=== PATIENT | male | born 1960 | race Hispanic/Latino ===

== ENCOUNTER → 2019-03-11 | Day surgery (SDC) | payer OTHER ==
[~2019-03-11] MED LIST: AMLODIPINE BESY10 MG PO; BENAZEPRIL HCL20 MG PO; FENTANYL CITRATE/PF 100MCG/2 ML INJ ONE; HYOSCYAMINE 0.125 MG TAB ONE; MIDAZOLAM HCL 2 MG/2 ML VIAL ONE; PROPOFOL IV EMULSION 10 MG/ML 50 ML VIAL ONE
--- OUTSIDE RECORDS SUMMARY | 2019-03-11 06:51 | XMS REPORT | CCD ---
Author Author Auto Generated Organization Address Unknown Phone Unavailable Care Team Providers Care Floor Clerk Name Role Phone Jaskaran Estrada RP Allergies, Adverse Reactions, Alerts Substance Reaction Status aspirin Active Medications Medication Instructions Start Date End Date Status Ancef 1 gm, Route: IVPB, ONCE, Start 09/26/2011 09/26/2011 Completed date: 09/26/11 7:35:00, Duration: 1 doses or times, Stop date: 09/26/11 7:35:00 Fish Oil 1000 mg Daily, Substitution Allowed 09/22/2011 Ordered oral capsule multivitamin Daily, Substitution Allowed, 09/22/2011 Ordered Maintenance amlodipine-atorvasta 1 tab, PO, Daily, 90 tab, 09/22/2011 Ordered tin 5 mg-20 mg oral Substitution Allowed, Maintenance, tablet TAB simvastatin 20 mg, 1 tab, PO, Bedtime, 30 tab, 09/22/2011 Ordered Substitution Allowed [place] 5/325 oral 1-2 tab, PO, Q4-6H, PRN, 20 tab, 0, 09/26/2011 10/01/2011 Ordered tablet 0, Pain, Substitution Allowed, Maintenance Reglan 10 mg, Route: IVP, ONCE, Start 09/26/2011 09/26/2011 Completed date: 09/26/11 9:15:00, Stop date: 09/26/11 9:15:00 flumazenil 0.2 mg, 2 mL, Route: IVP, Drug 09/26/2011 09/26/2011 Discontinued form: INJ, PRN, PRN Benzodiazepine Reversal, Initial dose, Start date: 09/26/11 9:23:00, Duration: 30 day, Stop date: 10/26/11 9:22:00 naloxone 0.04 mg, 0.1 mL, Route: IVP, Drug 09/26/2011 09/26/2011 Discontinued form: INJ, Q2MIN, PRN Narcotic Reversal, Start date: 09/26/11 9:23:00, Duration: 8 doses or times, Stop date: Limited # of times ondansetron 4 mg, 2 mL, Route: IVP, Drug form: 09/26/2011 09/26/2011 Discontinued INJ, ONCE, PRN Nausea & Vomiting, Start date: 09/26/11 9:23:00 hydromorphone 0.5 mg, 0.5 mL, Route: IVP, Drug 09/26/2011 09/26/2011 Discontinued form: SOLN, Q5Min, PRN Pain Score 4-6, Start date: 09/26/11 9:23:00, Duration: 5 doses or times, Stop date: Limited # of times fentanyl 25 microgram, 0.5 mL, Route: IVP, 09/26/2011 09/26/2011 Discontinued Drug form: INJ, Q5Min, PRN Pain Score 4-6, Start date: 09/26/11 9:23:00, Duration: 4 doses or times, Stop date: Limited # of times ketorolac 30 mg, 1 mL, Route: IVP, Drug form: 09/26/2011 09/26/2011 Discontinued INJ, ONCE, PRN Breakthrough Pain, Start date: 09/26/11 9:23:00, Duration: 1 doses or times, Stop date: Limited # of times acetaminophen-hydroc 2 tab, Route: PO, Drug Form: TAB, 09/26/2011 09/26/2011 Discontinued odone 325 mg-5 mg Q4H, PRN Pain Score 4-6, Start oral tablet date: 09/26/11 9:23:00, Duration: 30 day, Stop date: 10/26/11 9:22:00 acetaminophen-hydroc 1 tab, Route: PO, Drug Form: TAB, 09/26/2011 09/26/2011 Discontinued odone 325 mg-5 mg Q4H, PRN Pain Score 1-3, Start oral tablet date: 09/26/11 9:23:00, Duration: 30 day, Stop date: 10/26/11 9:22:00 lidocaine 1% 0.5 mL, Route: SUB-Q, Drug Form: 09/26/2011 09/26/2011 Discontinued INJ, ONCALL, Start date: 09/26/11 8:00:00, Duration: 1 doses or times Lactated Ringers 1,000 mL, Rate: 25 ml/hr, Infuse 09/26/2011 09/26/2011 Discontinued Injection IV 1,000 over: 40 hr, Route: IV, Dosing mL Weight 70.455 kg, Total Volume: 1,000, Start date: 09/26/11 7:24:00, Duration: 30 day, Stop date: 10/26/11 7:23:00 Vital Signs Most recent to oldest [Reference Range]: 1 2 3 Height 172.72 cm (09/22/2011 15:27:00) Temperature Oral [96.4-99.1 DegF] 98.3 DegF (09/26/2011 06:28:00) 98.6 DegF (09/22/2011 15:38:00) Systolic Blood Pressure [90-140 mmHg] 130 mmHg (09/26/2011 10:15:00) 126 mmHg (09/26/2011 09:45:00) 111 mmHg (09/26/2011 09:30:00) Diastolic Blood Pressure [60-90 mmHg] 56 mmHg *LOW* (09/26/2011 10:15:00) 59 mmHg *LOW* (09/26/2011 09:45:00) 55 mmHg *LOW* (09/26/2011 09:30:00) Respiratory Rate [14-20 BRMIN] 16 BRMIN (09/26/2011 10:15:00) 16 BRMIN (09/26/2011 09:45:00) 18 BRMIN (09/26/2011 09:30:00) Peripheral Pulse Rate [60-100 bpm] 84 bpm (09/26/2011 10:15:00) 88 bpm (09/26/2011 09:45:00) 67 bpm (09/26/2011 06:28:00) Weight 70.455 kg (09/22/2011 15:27:00) Results CHEMISTRY Most recent to oldest [Reference Range]: 1 Sodium Lvl [135-145 mEq/L] 142 mEq/L (09/22/2011 16:00:00) Potassium Lvl [3.5-5.1 mEq/L] 4.0 mEq/L (09/22/2011 16:00:00) Chloride Lvl [95-109 mEq/L] 106 mEq/L (09/22/2011 16:00:00) CO2 [24-32 mEq/L] 28 mEq/L (09/22/2011 16:00:00) AGAP [10.0-20.0 mEq/L] 12.0 mEq/L (09/22/2011 16:00:00) Creatinine Lvl [0.5-1.4 mg/dL] 1.0 mg/dL (09/22/2011 16:00:00) BUN [7-22 mg/dL] 17 mg/dL (09/22/2011 16:00:00) Glucose Lvl 97 mg/dL 1 *NA* (09/22/2011 16:00:00) Calcium Lvl [8.5-10.5 mg/dL] 8.9 mg/dL (09/22/2011 16:00:00) 1Interpretive Data: Reference Ranges : 0 - 7 days : 41 - 90 mg/dL7 days - 150 yrs : 70 - 99 mg/dL (fasting), based on the clinical recommendations of the [place] [employer]. HEMATOLOGY Most recent to oldest [Reference Range]: 1 WBC [3.7-10.4 K/CMM] 6.4 K/CMM (09/22/2011 16:00:00) RBC [4.70-6.10 M/CMM] 4.56 M/CMM *LOW* (09/22/2011 16:00:00) Hgb [14.0-18.0 g/dL] 13.4 g/dL *LOW* (09/22/2011 16:00:00) Hct [42.0-54.0 %] 39.7 % *LOW* (09/22/2011 16:00:00) MCV [80.0-94.0 fL] 87.1 fL (09/22/2011 16:00:00) MCH [27.0-31.0 pg] 29.4 pg (09/22/2011 16:00:00) MCHC [32.0-36.0 g/dL] 33.8 g/dL (09/22/2011 16:00:00) RDW [11.5-14.5 %] 13.3 % (09/22/2011 16:00:00) Platelet [133-450 K/CMM] 211 K/CMM (09/22/2011 16:00:00) MPV [7.4-10.4 fL] 9.3 fL (09/22/2011 16:00:00) Segs [45.0-75.0 %] 46.1 % (09/22/2011 16:00:00) Lymphocytes [20.0-40.0 %] 43.4 % *HI* (09/22/2011 16:00:00) Monocytes [2.0-12.0 %] 6.1 % (09/22/2011 16:00:00) Eosinophils [0.0-4.0 %] 3.9 % (09/22/2011 16:00:00) Basophils [0.0-1.0 %] 0.5 % (09/22/2011 16:00:00) Segs-Bands # [1.5-8.1 K/CMM] 2.9 K/CMM (09/22/2011 16:00:00) Lymphocytes # [1.0-5.5 K/CMM] 2.8 K/CMM (09/22/2011 16:00:00) Monocytes # [0.0-0.8 K/CMM] 0.4 K/CMM (09/22/2011 16:00:00) Eosinophils # [0.0-0.5 K/CMM] 0.2 K/CMM (09/22/2011 16:00:00) Basophils # [0.0-0.2 K/CMM] 0.0 K/CMM (09/22/2011 16:00:00)
--- OUTSIDE RECORDS SUMMARY | 2019-03-11 06:51 | XMS REPORT | Continuity of Care Document ---
Author Author [employer] Organization [employer] Address Unknown Phone Unavailable Care Team Providers Care Director Experimental Medicine Name Role Phone [employer] Unavailable Unavailable Problems Problem Status Onset Date Classification Date Reported Comments Source R10.11 - RIGHT UPPER QUADRANT PAIN Active 03/07/2016 [facility] 789.01 - ABDMNAL PAIN RT Active 03/24/2013 [facility] Right inguinal hernia (disorder) Active 09/11/2011 Problem 03/21/2016 Data migrated from [employer] on 12/09/14. JOSE RAUL Tamay[facility] INGUINAL HERNIA, RT Active 09/11/2011 [facility] Medications Medication Details Route Status Patient Instructions Ordering Provider Order Date Source flumazenil 0.2 mg, 2 mL, Route: IVP, Drug form: INJ, PRN, PRN Benzodiazepine Reversal, Initial dose, Start date: 09/26/11 9:23:00, Duration: 30 day, Stop date: 10/26/11 9:22:00 IVP No Longer Active Óscar 09/26/2011 [facility] naloxone 0.04 mg, 0.1 mL, Route: IVP, Drug form: INJ, Q2MIN, PRN Narcotic Reversal, Start date: 09/26/11 9:23:00, Duration: 8 doses or times, Stop date: Limited # of times IVP No Longer Active Óscar 09/26/2011 [facility] ondansetron 4 mg, 2 mL, Route: IVP, Drug form: INJ, ONCE, PRN Nausea & Vomiting, Start date: 09/26/11 9:23:00 IVP No Longer Active Óscar 09/26/2011 [facility] hydromorphone 0.5 mg, 0.5 mL, Route: IVP, Drug form: SOLN, Q5Min, PRN Pain Score 4-6, Start date: 09/26/11 9:23:00, Duration: 5 doses or times, Stop date: Limited # of times IVP No Longer Active Óscar 09/26/2011 [facility] fentanyl 25 microgram, 0.5 mL, Route: IVP, Drug form: INJ, Q5Min, PRN Pain Score 4-6, Start date: 09/26/11 9:23:00, Duration: 4 doses or times, Stop date: Limited # of times IVP No Longer Active Óscar 09/26/2011 [facility] ketorolac 30 mg, 1 mL, Route: IVP, Drug form: INJ, ONCE, PRN Breakthrough Pain, Start date: 09/26/11 9:23:00, Duration: 1 doses or times, Stop date: Limited # of times IVP No Longer Active Óscar 09/26/2011 [facility] acetaminophen-hydrocodone 325 mg-5 mg oral tablet 2 tab, Route: PO, Drug Form: TAB, Q4H, PRN Pain Score 4-6, Start date: 09/26/11 9:23:00, Duration: 30 day, Stop date: 10/26/11 9:22:00 PO No Longer Active Óscar 09/26/2011 [facility] Reglan 10 mg, Route: IVP, ONCE, Start date: 09/26/11 9:15:00, Stop date: 09/26/11 9:15:00 IVP No Longer Active Rodrigo 09/26/2011 [facility] [place] 5/325 oral tablet 1-2 tab, PO, Q4-6H, PRN, 20 tab, 0, 0, Pain, Substitution Allowed, Maintenance PO Active Cortez 09/26/2011 [facility] lidocaine 1% 0.5 mL, Route: SUB-Q, Drug Form: INJ, ONCALL, Start date: 09/26/11 8:00:00, Duration: 1 doses or times SUB-Q No Longer Active Óscar 09/26/2011 [facility] Ancef 1 gm, Route: IVPB, ONCE, Start date: 09/26/11 7:35:00, Duration: 1 doses or times, Stop date: 09/26/11 7:35:00 IVPB No Longer Active Bhanu 09/26/2011 [facility] Lactated Ringers Injection IV 1,000 mL 1,000 mL, Rate: 25 ml/hr, Infuse over: 40 hr, Route: IV, Dosing Weight 70.455 kg, Total Volume: 1,000, Start date: 09/26/11 7:24:00, Duration: 30 day, Stop date: 10/26/11 7:23:00 IV No Longer Active Óscar 09/26/2011 [facility] Fish Oil 1000 mg oral capsule Daily, Substitution Allowed Active 09/22/2011 [facility] multivitamin Daily, Substitution Allowed, Maintenance Active 09/22/2011 [facility] amlodipine-atorvastatin 5 mg-20 mg oral tablet 1 tab, PO, Daily, 90 tab, Substitution Allowed, Maintenance, TAB PO Active 09/22/2011 [facility] simvastatin 20 mg, 1 tab, PO, Bedtime, 30 tab, Substitution Allowed PO Active 09/22/2011 [facility] Allergies, Adverse Reactions, Alerts Substance Category Reaction Severity Reaction type Status Date Reported Comments Source aspirin<sup>1</sup> Assertion Drug allergy Active 09/11/2011 Data migrated from [employer] on 11/07/14. Originally documented as ASPIRIN. [facility] aspirin Assertion Drug allergy Active [facility] Immunizations No Data Provided for This Section Results Order Name Results Value Reference Range Date Interpretation Comments Source CHEMISTRY Chloride Lvl 106 95 - 109 09/22/2011 Normal [facility] CHEMISTRY CO2 28 24 - 32 09/22/2011 Normal [facility] CHEMISTRY Calcium Lvl 8.9 8.5 - 10.5 09/22/2011 Normal [facility] CHEMISTRY BUN 17 7 - 22 09/22/2011 Normal [facility] CHEMISTRY Creatinine Lvl 1.0 0.5 - 1.4 09/22/2011 Normal [facility] CHEMISTRY Glucose Lvl 97 09/22/2011 NA <sup>1</sup>Interpretive Data: Reference Ranges : 0 - 7 days : 41 - 90 mg/dL 7 days - 150 yrs : 70 - 99 mg/dL (fasting), based on the clinical recommendations of the [place] [employer]. [facility] CHEMISTRY Sodium Lvl 142 135 - 145 09/22/2011 Normal [facility] CHEMISTRY Potassium Lvl 4.0 3.5 - 5.1 09/22/2011 Normal [facility] CHEMISTRY AGAP 12.0 10.0 - 20.0 09/22/2011 Normal [facility] HEMATOLOGY WBC 6.4 3.7 - 10.4 09/22/2011 Normal [facility] HEMATOLOGY MCHC 33.8 32.0 - 36.0 09/22/2011 Normal [facility] HEMATOLOGY RDW 13.3 11.5 - 14.5 09/22/2011 Normal [facility] HEMATOLOGY RBC 4.56 4.70 - 6.10 09/22/2011 LOW [facility] HEMATOLOGY Hgb 13.4 14.0 - 18.0 09/22/2011 LOW [facility] HEMATOLOGY Platelet 211 133 - 450 09/22/2011 Normal [facility] HEMATOLOGY MPV 9.3 7.4 - 10.4 09/22/2011 Normal [facility] HEMATOLOGY MCH 29.4 27.0 - 31.0 09/22/2011 Normal [facility] HEMATOLOGY MCV 87.1 80.0 - 94.0 09/22/2011 Normal [facility] HEMATOLOGY Hct 39.7 42.0 - 54.0 09/22/2011 LOW [facility] HEMATOLOGY Monocytes # 0.4 0.0 - 0.8 09/22/2011 Normal [facility] HEMATOLOGY Eosinophils # 0.2 0.0 - 0.5 09/22/2011 Normal [facility] HEMATOLOGY Basophils # 0.0 0.0 - 0.2 09/22/2011 Normal [facility] HEMATOLOGY Eosinophils 3.9 0.0 - 4.0 09/22/2011 Normal [facility] HEMATOLOGY Monocytes 6.1 2.0 - 12.0 09/22/2011 Normal [facility] HEMATOLOGY Basophils 0.5 0.0 - 1.0 09/22/2011 Normal [facility] HEMATOLOGY Lymphocytes 43.4 20.0 - 40.0 09/22/2011 HI [facility] HEMATOLOGY Segs 46.1 45.0 - 75.0 09/22/2011 Normal [facility] HEMATOLOGY Lymphocytes # 2.8 1.0 - 5.5 09/22/2011 Normal [facility] HEMATOLOGY Segs-Bands # 2.9 1.5 - 8.1 09/22/2011 Normal [facility] Pathology Reports No Data Provided for This Section Diagnostic Reports Report Value Date Source Abdomen complete US ULTRASOUND OF THE ABDOMEN History: 55-year-old male with right upper quadrant pain Technique: Real-time chau-scale imaging supplemented with color Doppler of complete abdomen was performed. Comparison: 01/30/2009 Findings: The liver has fine diffuse increased parenchymal echogenicity suggesting steatosis or chronic liver disease. Long axis dimension of right lobe is 17.9 cm, portal vein caliber is 1.3 cm with hepatopetal flow. The gallbladder has no stones, wall thickness is 0.1 cm and the sonographic Luke sign is negative. The common bile duct caliber is 0.3 cm. The pancreas head and body appear normal and pancreatic tail is not seen. The spleen is unremarkable measuring 11.4 cm. The left kidney has an upper pole cortical 0.8 x 0.5 x 0.5 cm area, may correspond to an area of fibrosis or a small angiomyolipoma. Otherwise renal morphology is normal. Right kidney measures 11.2 x 5.2 x 5.1 cm and left 11.0 x 5.4 x 5.5 cm. The abdominal aorta and segments of the IVC seen have normal caliber. IMPRESSION: Liver parenchymal pattern suggests steatosis or chronic liver disease. 03/18/2016 JOSE RAUL [facility] Hip 2 views DX EXAM: X-RAY RIGHT HIP 2 VIEWS EXAM: X-RAY RIGHT KNEE 2 VIEWS DATE: 05/24/2014 COMPARISON EXAMS: None. CLINICAL INDICATION: Right hip and knee pain DATA: None TECHNIQUE: AP and frog-leg lateral views of the right hip as well as AP and lateral views of the right knee DISCUSSION: No fractures, osseous malalignment, osseous destructive lesions, arthritic change, or other osseous pathology are seen involving the right hip. Right hip joint space is well-maintained. Included aspects of the right sacroiliac joint are normal appearance. No soft tissue pathology is seen. AP and lateral views of the right knee reveal no fractures, osseous malalignment, or osseous destructive lesions. Minimal enthesophytic spurring is seen off the superior pole of the right patella. The right knee joint space is well-maintained. No knee joint effusion or soft tissue abnormalities are seen. IMPRESSION: 1. No abnormalities of the right hip are demonstrated. 2. Minimal enthesophytic spurring off the super pole of the right patella. No other right knee joint abnormalities are noted. 05/24/2014 [facility] Knee 1-2 Views unilateral DX EXAM: X-RAY RIGHT HIP 2 VIEWS EXAM: X-RAY RIGHT KNEE 2 VIEWS DATE: 05/24/2014 COMPARISON EXAMS: None. CLINICAL INDICATION: Right hip and knee pain DATA: None TECHNIQUE: AP and frog-leg lateral views of the right hip as well as AP and lateral views of the right knee DISCUSSION: No fractures, osseous malalignment, osseous destructive lesions, arthritic change, or other osseous pathology are seen involving the right hip. Right hip joint space is well-maintained. Included aspects of the right sacroiliac joint are normal appearance. No soft tissue pathology is seen. AP and lateral views of the right knee reveal no fractures, osseous malalignment, or osseous destructive lesions. Minimal enthesophytic spurring is seen off the superior pole of the right patella. The right knee joint space is well-maintained. No knee joint effusion or soft tissue abnormalities are seen. IMPRESSION: 1. No abnormalities of the right hip are demonstrated. 2. Minimal enthesophytic spurring off the super pole of the right patella. No other right knee joint abnormalities are noted. 05/24/2014 JOSE RAUL [facility] Consultation Notes No Data Provided for This Section Discharge Summaries No Data Provided for This Section History and Physicals No Data Provided for This Section Vital Signs Vital Sign Value Date Comments Source Heart Rate 84 09/26/2011 [facility] Respitory Rate 16 09/26/2011 [facility] Systolic (mm Hg) 130 09/26/2011 [facility] Diastolic (mm Hg) 56 09/26/2011 [facility] Diastolic (mm Hg) 59 09/26/2011 [facility] Heart Rate 88 09/26/2011 [facility] Respitory Rate 16 09/26/2011 [facility] Systolic (mm Hg) 126 09/26/2011 [facility] Systolic (mm Hg) 111 09/26/2011 [facility] Respitory Rate 18 09/26/2011 [facility] Diastolic (mm Hg) 55 09/26/2011 [facility] Heart Rate 67 09/26/2011 [facility] Temperature Oral (F) 98.3 F 09/26/2011 [facility] Temperature Oral (F) 98.6 F 09/22/2011 [facility] Height 172.72 cm 09/22/2011 [facility] Weight 70.455 09/22/2011 [facility] Encounters Location Location Details Encounter Type Encounter Number Reason For Visit Attending Provider ADM Date DC Date Status Source [facility] DS [id number] CHANCE CORTEZ 09/26/2011 09/26/2011 Discharged [facility] [id number] Klaus Carroll 05/24/2014 05/25/2014 [facility] [id number] Klaus Carroll 03/18/2016 03/19/2016 JOSE RA[facility] Procedures No Data Provided for This Section Assessment and Plan No Data Provided for This Section Plan of Care No Data Provided for This Section Social History Social History Date Source No data available for this section 03/19/2016 [facility] Tam[facility] Family History No Data Provided for This Section Advance Directives No Data Provided for This Section Functional Status No Data Provided for This Section
--- OUTSIDE RECORDS SUMMARY | 2019-03-11 06:52 | XMS REPORT | Summary of Care ---
Author Author [facility] [place] Organization [facility] [place] Address Unknown Phone Unavailable Encounter [id number](FIN) [id number] Date(s): 03/18/16 - 03/18/16 [facility] [place] [address] [place] [phone] Discharge Disposition: Home or Self Care Attending Physician: Klaus Carroll MD Vital Signs No data available for this section Problem List Condition Effective Dates Status Health Status Informant Right inguinal 09/11/11 Active hernia1 1Data migrated from [employer] on 12/09/14. Allergies, Adverse Reactions, Alerts Substance Reaction Severity Status aspirin1 Active 1Data migrated from [employer] on 11/07/14. Originally documented as ASPIRIN. Medications No data available for this section Results No data available for this section Immunizations No data available for this section Procedures No data available for this section Social History No data available for this section Assessment and Plan No data available for this section
[2019-03-11 10:35] VITALS: BP 140/77
--- NOTE | 2019-03-11 12:02 | Operative Report ---
DATE OF PROCEDURE: 03/11/2019 SURGEON: Gareth Viera MD PROCEDURE: Colonoscopy with polypectomy. INDICATIONS FOR COLONOSCOPY: Colorectal cancer screening. MEDICATIONS: The patient was done under MAC, please see anesthesiologist's note. PROCEDURE IN DETAIL: With the patient in left lateral decubitus position, a flexible fiberoptic Olympus colonoscope was inserted into the rectum with ease and advanced all the way to the cecum. Scattered diverticular disease was pretty much noted throughout. An approximately 1 cm sessile polyp was removed from the proximal ascending colon and polypectomy site was hemoclipped x2. The rest of the ascending and transverse grossly appeared to be within normal limits. One polyp was hot biopsied and site was hemoclipped from the proximal descending colon. The rest of the descending appeared to be within normal limits other than for diverticular disease. One polyp was snared from the sigmoid colon and one polyp was hot biopsied from the rectum. The scope was then retroflexed into the distal rectum and small internal hemorrhoids were noted, none of which was actively bleeding. The scope was then straightened out, it was subsequently withdrawn, and the patient tolerated the procedure well. IMPRESSION: 1. Pandiverticulosis. 2. Ascending colon polyp snared, site hemoclipped x2. 3. Descending colon polyp, hot biopsied, site hemoclipped x1. 4. Sigmoid colon polyp snared. 5. Rectal polyp, hot biopsied. 6. Internal hemorrhoids, none actively bleeding. PLAN: Follow up histology. Initiate high-fiber, low-fat diet. Initiate high-fiber supplement. The patient might benefit from a followup colonoscopy in 3 years. Gareth Viera MD [facility] [place] /[id number] cc: Dr. Klaus Mancia
== END | disposition home or self-care (01) ==
LOC: OR 06:30
PROVIDERS: ATTEND Internal Medicine Gastroenterology
DX: Z12.11 Encounter for screening for malignant neoplasm of colon (principal); D12.2 Benign neoplasm of ascending colon; D12.4 Benign neoplasm of descending colon; D12.5 Benign neoplasm of sigmoid colon; I10 Essential (primary) hypertension; K57.30 Diverticulosis of large intestine without perforation or abscess without bleeding; K62.1 Rectal polyp; K64.8 Other hemorrhoids; Z88.8 Allergy status to other drugs, medicaments and biological substances; Z01.810 Encounter for preprocedural cardiovascular examination
CPT/HCPCS: 45384; 45385; 93005; J2250; J2704; J3010; 45378